=== PATIENT | female | born 1960 | race Caucasian/White ===

== ENCOUNTER 2017-05-10 12:16 | Outpatient (CLI) | payer BC | END 2017-05-10 12:17 | disposition home or self-care (01) | LOC: BICMAMMO 12:16 | PROVIDERS: ATTEND Obstetrics & Gynecology | DX: Z12.31 Encounter for screening mammogram for malignant neoplasm of breast (principal) | CPT/HCPCS: 77063; 77067 ==

== ENCOUNTER 2018-04-15 07:52 | Outpatient (CLI) | payer BC ==
[2018-04-15] MEDS ORDERED: Iopamidol 370 76% 100 ML VIAL ONE (09:28)
--- NOTE | 2018-04-15 13:49 | NM ---
NUCLEAR MEDICINE PARATHYROID SCAN: Date: 04/15/18 HISTORY: Hypercalcemia. COMPARISON: None. TECHNIQUE: Patient was administered 25 mCi of technetium-99m sestamibi intravenously. Imaging was performed imme diately, in 1 hour, and 2 hours. Planar and SPECT imaging was performed. FINDINGS/IMPRESSION: There is uptake of radiotracer in the left aspect of the thyroid bed, which is best demonstrated on t he 2 hour delayed images. There is scintigraphic evidence for a parathyroid adenoma in this region. P lease refer to pre and postcontrast neck CT for further detail. POS: QUINTON
--- NOTE | 2018-04-15 14:23 | CT ---
NECK CT WITH AND WITHOUT CONTRAST: Date: 04/15/18 HISTORY: Hypercalcemia. COMPARISON: None. TECHNIQUE: Axial images of the soft tissue neck performed with and without contrast following parathyroid protoc ol. Reformatted images are submitted for interpretation. FINDINGS: Visualized aerodigestive tract is patent. No mucosal abnormality. Midline fatty raphe of the tongue i s preserved. Epiglottis has a normal caliber. Preepiglottic fat is preserved. There is no prevertebra l soft tissue swelling. Appropriate attenuation of the submandibular glands. Fatty replacement of both parotid glands. Symmetric attenuation of sternocleidomastoid muscles. There are nonspecific, nonenlarged bilateral so ft tissue neck lymph nodes. Grossly, the great vessels of the neck are patent. Cervical spine vertebral body height is maintained. There is no fracture. No high grade central canal stenosis or high grade foraminal narrowing. Upper mediastinum is unremarkable. Dependent atelectatic changes of lung bases. Heterogeneous appearance of the right thyroid lobe with hypodense nodules in the right thyroid lobe. Largest nodule measures 0.8 cm. On the noncontrast images, there is a hypodense focus posterior to the inferior aspect of the left th yroid lobe, measuring 1.0 cm. On the 25 second delayed images, there is mild enhancement with some wa shout on the delayed images. This lesion corresponds to the nuclear medicine study. A left parathyroi d adenoma is favored, however the degree of enhancement is less than typical. An exophytic left thyro id nodule cannot be excluded given that the lesion cannot be definitively excluded from the adjacent thyroid lobe. IMPRESSION: Solitary parathyroid adenoma posterior to the lower lobe of the left thyroid lobe is favored. Melanie r, a second consideration could be an exophtyic thyroid nodule. Correlate with serum calcium levels. POS: MARIA ESTHER
== END 2018-04-15 07:53 | disposition home or self-care (01) ==
LOC: CT 07:52
PROVIDERS: ATTEND Otolaryngology Plastic Surgery within the Head & Neck
DX: E83.52 Hypercalcemia (principal); D35.1 Benign neoplasm of parathyroid gland
CPT/HCPCS: 70492; 78072; A9500; Q9967

== ENCOUNTER 2023-12-05 12:34 | Day surgery (SDC) | payer BC ==
[2023-12-04 13:02] VITALS: BMI 35.5
[2023-12-05] MEDS ORDERED: Midazolam HCl 2 mg/2 ml Vial ONE (13:15)
[2023-12-05] MEDS ORDERED: Lidocaine 1% (PF) 30 ML VIAL ONE (13:15)
[2023-12-05] MEDS ORDERED: Ropivacaine 0.5% HCl/PF (150 MG/30 ML VIAL) ONE (13:15)
[2023-12-05] MEDS ORDERED: fentaNYL 50 mcg/mL 1 mL Vial ONE ×2 (13:15→13:47)
[2023-12-05] MEDS ORDERED: CEFAZOLIN 2 GM VIAL ONE (13:38)
[2023-12-05] MEDS ORDERED: Sodium Chloride 0.9% 100 ML ONE (13:38)
[2023-12-05] MEDS ORDERED: PROPOFOL 20 ML ONE (13:47)
[2023-12-05] MEDS ORDERED: Lidocaine 1% PF 5 ML VIAL ONE (13:48)
[2023-12-05] MEDS ORDERED: PHENYLEPHRINE-NS 100 MCG/ML 10 ML SYRINGE ONE (14:24)
[2023-12-05] MEDS ORDERED: ePHEDrine Sulfate 50 MG/10 ML VIAL ONE (14:25)
[2023-12-05] MEDS ORDERED: Ondansetron PF 4 MG/2 ML Vial ONE (14:34)
[2023-12-05] MEDS ORDERED: Dexamethasone 20 MG/5 ML VIAL ONE (14:34)
[2023-12-05] MEDS ORDERED: Ketorolac Tromethamine 30 MG (1 mL) VIAL ONE (14:41)
[2023-12-05] MEDS ORDERED: Fentanyl 250 MCG/5 ML VIAL ONE (15:26)
[2023-12-05] MEDS ORDERED: HYDROmorphone 0.5 MG/0.5 ML SYRINGE ONE ×2 (15:27→16:04)
== END 2023-12-05 17:51 | disposition home or self-care (01) ==
LOC: SDC 12:34
PROVIDERS: ATTEND Orthopaedic Surgery
PROC: 0PSH04Z Reposition Right Radius with Internal Fixation Device, Open Approach (ICD-10-PCS; principal; 2023-12-05)
DX: S52.531A Colles' fracture of right radius, initial encounter for closed fracture (principal); S52.614A Nondisplaced fracture of right ulna styloid process, initial encounter for closed fracture; S42.124A Nondisplaced fracture of acromial process, right shoulder, initial encounter for closed fracture; E78.00 Pure hypercholesterolemia, unspecified; F32.A Depression, unspecified; W01.198A Fall on same level from slipping, tripping and stumbling with subsequent striking against other object, initial encounter; Z79.899 Other long term (current) drug therapy
CPT/HCPCS: C1713; J1100; J1170; J1885; J2001; J2250; J2405; J2704; J2795; J3010